=== PATIENT | male | born 1985 | race Caucasian/White ===

== ENCOUNTER 2023-11-04 08:23 | Emergency (ER) | payer BC ==
[~2023-11-04] VITALS: Ht 177.8 cm; Wt 99.8 kg
[2023-11-04] MEDS ORDERED: ONDANSETRON HCL/PF 4 MG/2 ML VIAL ONE ×2 (09:13→10:02)
[2023-11-04] MEDS ORDERED: MECLIZINE HCL 25 MG TABLET ONE (09:13)
[2023-11-04] MEDS: IV NS 0.9% 1,000 ML BAG IV ONE (09:15)
[2023-11-04] MEDS: ONDANSETRON HCL/PF 4 MG/2 ML VIAL IVP ONE (09:20)
[2023-11-04] MEDS: MECLIZINE HCL 12.5 MG TABLET PO ONE (09:23)
[2023-11-04 09:35] LABS: BASOPHILS # (AUTO) 0.1 K/uL (0.0-0.2); BASOPHILS % (AUTO) 0.6 % (0.0-2.0); EOSINOPHILS # (AUTO) 0.4 K/uL (0.0-0.7); EOSINOPHILS % (AUTO) 4.4 % (0.0-6.0); HEMATOCRIT 44 % (39-51); HEMOGLOBIN 15.1 g/dL (13.5-17.5); LYMPHOCYTES # (AUTO) 1.2 K/uL (0.8-4.8); LYMPHOCYTES % (AUTO) 12.7 % (20.0-44.0); MEAN CORPUSCULAR HEMOGLOBIN 32 PG (26.0-33.0); MEAN CORPUSCULAR HGB CONC 34 g/dl (31.0-36.0); MEAN CORPUSCULAR VOLUME 94 fL (80-96); MONOCYTES # (AUTO) 0.4 K/uL (0.1-1.30); MONOCYTES % (AUTO) 4.2 % (2.0-12.0); NEUTROPHILS # (AUTO) 7.3 K/uL (1.8-8.9); NEUTROPHILS % (AUTO) 78.1 % (43.0-81.0); PLATELET COUNT (AUTO) 234 K/uL (150-450); RED BLOOD CELL COUNT(AUTO) 4.72 MIL/uL (4.5-6.0); RED CELL DISTRIBUTION WIDTH 13.3 % (11.5-15.0); WHITE BLOOD COUNT (AUTO) 9.3 K/uL (4.3-11.0)
[2023-11-04 09:52] LABS: CALCIUM, SERUM 9.3 mg/dL (8.5-10.1); POTASSIUM 3.8 mmol/L (3.5-5.1)
[2023-11-04] MEDS: diphenhydrAMINE HCL 50 MG/ML VIAL IV ONE (10:00)
[2023-11-04] MEDS: ONDANSETRON HCL/PF - ER 4 MG/2 ML VIAL IV ONE (10:00)
[2023-11-04] MEDS ORDERED: diphenhydrAMINE HCL 50 MG/ML VIAL ONE (10:02)
[2023-11-04] MEDS ORDERED: MECL-182 PO (12:05)
[2023-11-04] MEDS ORDERED: ONDA4TAB11 PO (12:05)
[2023-11-04 12:34] VITALS: BP 140/85; TEMP 98.4; O2SAT 100
== END 2023-11-04 12:34 | disposition home or self-care (01) ==
LOC: ER 08:23
DX: R42 Dizziness and giddiness (principal); R11.2 Nausea with vomiting, unspecified
CPT/HCPCS: 99284; 96374; 96361; 96375; 93005; 96376; 85025; 80048; 36415; J8597; J1200; J2405 ×3; J7030 ×2